=== PATIENT | male | born 1965 | race Hispanic/Latino ===

== ENCOUNTER → 2017-06-09 | Day surgery (SDC) | payer SELFPAY ==
[~2017-06-09] MED LIST: FENTANYL CITRATE/PF 100MCG/2 ML INJ ONE; LIDOCAINE HCL 2% LOCAL INJ 5 ML SDV VIAL INJ ONE; MIDAZOLAM HCL 2 MG/2 ML VIAL ONE; PROPOFOL IV EMULSION 10 MG/ML 50 ML VIAL ONE; PROPRANOLOL HCL40 MG PO
== END | disposition home or self-care (01) ==
LOC: OR 09:42
PROVIDERS: ATTEND Internal Medicine Gastroenterology
DX: K74.60 Unspecified cirrhosis of liver (principal); I85.10 Secondary esophageal varices without bleeding; K29.70 Gastritis, unspecified, without bleeding; K76.6 Portal hypertension; K31.89 Other diseases of stomach and duodenum; K21.9 Gastro-esophageal reflux disease without esophagitis; K44.9 Diaphragmatic hernia without obstruction or gangrene; K57.30 Diverticulosis of large intestine without perforation or abscess without bleeding; E66.9 Obesity, unspecified; B18.2 Chronic viral hepatitis C; D69.6 Thrombocytopenia, unspecified; R74.0 Nonspecific elevation of levels of transaminase and lactic acid dehydrogenase [LDH]; R00.1 Bradycardia, unspecified; F17.210 Nicotine dependence, cigarettes, uncomplicated; Z01.810 Encounter for preprocedural cardiovascular examination; Z68.34 Body mass index [BMI] 34.0-34.9, adult
CPT/HCPCS: 43239; 43244; 93005; J2001; J2250

== ENCOUNTER → 2017-08-06 | Outpatient (CLI) | payer SELFPAY ==
[~2017-08-06] MED LIST changes: -FENTANYL CITRATE/PF 100MCG/2 ML INJ ONE; -LIDOCAINE HCL 2% LOCAL INJ 5 ML SDV VIAL INJ ONE; -MIDAZOLAM HCL 2 MG/2 ML VIAL ONE; -PROPOFOL IV EMULSION 10 MG/ML 50 ML VIAL ONE; +PROTONIX40 MG/ML PO
[2017-08-06 11:15] LABS: BASOPHILS % 0.5 % (0.0-1.0); EOSINOPHILS # (AUTO) 0.1 (0.0-0.4); EOSINOPHILS % 2.3 % (0.0-6.0); HEMOGLOBIN 16.7 g/dL (14.0-18.0); LYMPHOCYTES # (AUTO) 2.1 (1.0-3.2); LYMPHOCYTES % 33.9 % (18.0-39.1); MEAN CORPUSCULAR HEMOGLOBIN 30.9 pg (28-32); MEAN CORPUSCULAR HGB CONC 34.1 g/dL (31-35); MEAN CORPUSCULAR VOLUME 90.6 fL (81-99); MONOCYTES # (AUTO) 0.7 (0.2-0.8); MONOCYTES % 12.3 % (4.4-11.3); NEUTROPHILS # (AUTO) 3.1 (2.1-6.9); NEUTROPHILS % 50.8 % (38.7-80.0); PLATELET COUNT 100 x10e3/uL (140-360); RED BLOOD COUNT 5.41 x10e6/uL (4.3-5.7); RED CELL DISTRIBUTION WIDTH 15.2 % (11.7-14.4)
[2017-08-06 11:30] LABS: INR 1.04; PROTHROMBIN TIME 14.1 seconds (11.9-14.5)
[2017-08-06 11:31] LABS: PARTIAL THROMBOPLASTIN TIME 45.3 seconds (23.8-35.5)
[2017-08-06 11:37] LABS: ALANINE AMINOTRANSFERASE 92 IU/L (0-55); ALBUMIN 3.7 g/dL (3.5-5.0); ALBUMIN/GLOBULIN RATIO 0.8 (0.8-2.0); ALKALINE PHOSPHATASE 94 IU/L (40-150); ANION GAP 11.3 mmol/L (8-16); BLOOD UREA NITROGEN 11 mg/dL (7-26); BUN/CREATININE RATIO 14 (6-25); CALCIUM 9.3 mg/dL (8.4-10.2); CARBON DIOXIDE 25 mmol/L (22-29); CHLORIDE 108 mmol/L (98-107); CREATININE, SERUM 0.79 mg/dL (0.72-1.25); EST GLOMERULAR FILTRATION RATE > 60 ML/MIN (60-); GLUCOSE 81 mg/dL (74-118); POTASSIUM 4.3 mmol/L (3.5-5.1); SODIUM 140 mmol/L (136-145)
== END ==
LOC: LAB 12:00 → OR 08-11 10:12 → EDSTATUS 08-11 11:00
PROVIDERS: ATTEND Internal Medicine Gastroenterology
DX: K74.60 Unspecified cirrhosis of liver (principal); D69.6 Thrombocytopenia, unspecified; I85.00 Esophageal varices without bleeding; K57.30 Diverticulosis of large intestine without perforation or abscess without bleeding; B18.2 Chronic viral hepatitis C; E66.9 Obesity, unspecified; Z71.3 Dietary counseling and surveillance; Z86.010 Personal history of colon polyps; Z53.8 Procedure and treatment not carried out for other reasons
CPT/HCPCS: 36415; 80053; 85025; 85610; 85730

== ENCOUNTER 2017-08-31 08:06 | Emergency (ER) | payer BC, OTHER, SELFPAY ==
[~2017-08-31] VITALS: Ht 180.3 cm; Wt 108.9 kg
[2017-08-31] MEDS ORDERED: CLINDAMYCIN PHOS 900MG/ D5W 50 50 ML IV STA (09:13)
[2017-08-31] MEDS ORDERED: SODIUM CHLORIDE 0.9% 1000ML 1,000 ML IV STA (09:13)
[2017-08-31 09:30] LABS: BASOPHILS % 0.2 % (0.0-1.0); EOSINOPHILS # (AUTO) 0.1 (0.0-0.4); HEMATOCRIT 43.5 % (38.2-49.6); HEMOGLOBIN 15.2 g/dL (14.0-18.0); LYMPHOCYTES # (AUTO) 1.4 (1.0-3.2); LYMPHOCYTES % 23.3 % (18.0-39.1); MEAN CORPUSCULAR HEMOGLOBIN 31.3 pg (28-32); MEAN CORPUSCULAR HGB CONC 34.9 g/dL (31-35); MEAN CORPUSCULAR VOLUME 89.7 fL (81-99); MONOCYTES # (AUTO) 0.7 (0.2-0.8); MONOCYTES % 11.1 % (4.4-11.3); NEUTROPHILS # (AUTO) 3.7 (2.1-6.9); NEUTROPHILS % 64.1 % (38.7-80.0); PLATELET COUNT 74 x10e3/uL (140-360); RED BLOOD COUNT 4.85 x10e6/uL (4.3-5.7); RED CELL DISTRIBUTION WIDTH 14.4 % (11.7-14.4)
[2017-08-31 09:44] LABS: INR 1.13; PROTHROMBIN TIME 13.6 seconds (11.9-14.5)
[2017-08-31 09:51] LABS: ALANINE AMINOTRANSFERASE 72 IU/L (0-55); ALBUMIN 3.4 g/dL (3.5-5.0); ALBUMIN/GLOBULIN RATIO 0.8 (0.8-2.0); ALKALINE PHOSPHATASE 77 IU/L (40-150); ANION GAP 12.7 mmol/L (8-16); BLOOD UREA NITROGEN 11 mg/dL (7-26); BUN/CREATININE RATIO 15 (6-25); CALCIUM 8.6 mg/dL (8.4-10.2); CARBON DIOXIDE 20 mmol/L (22-29); CHLORIDE 109 mmol/L (98-107); CREATININE, SERUM 0.75 mg/dL (0.72-1.25); EST GLOMERULAR FILTRATION RATE > 60 ML/MIN (60-); GLUCOSE 125 mg/dL (74-118); POTASSIUM 3.7 mmol/L (3.5-5.1); SODIUM 138 mmol/L (136-145)
[2017-08-31 11:22] VITALS: BP 104/64
== END 2017-08-31 11:34 | disposition home or self-care (01) ==
LOC: ER 08:06
DX: L03.115 Cellulitis of right lower limb (principal); L03.116 Cellulitis of left lower limb; I10 Essential (primary) hypertension; K74.60 Unspecified cirrhosis of liver; Z86.19 Personal history of other infectious and parasitic diseases; F17.200 Nicotine dependence, unspecified, uncomplicated
CPT/HCPCS: 36415; 80053; 85025; 85610; 85730; 99284; J7030

== ENCOUNTER → 2017-09-01 | Day surgery (SDC) | payer OTHER ==
[~2017-09-01] MED LIST changes: +FENTANYL CITRATE/PF 100MCG/2 ML INJ ONE; +LIDOCAINE HCL 2% LOCAL INJ 5 ML SDV VIAL INJ ONE; +MIDAZOLAM HCL 2 MG/2 ML VIAL ONE; +PROPOFOL IV EMULSION 10 MG/ML 20 ML VIAL ONE
--- OUTSIDE RECORDS SUMMARY | 2017-09-01 10:04 | XMS REPORT | Continuity of Care Document ---
Author Author [facility] Organization [facility] Address [address] [place] [address] Phone Unavailable Care Team Providers Care Director Of Curriculum And Instruction Name Role Phone CONNOR RYAN MD PCP Insurance Providers Guarantor Martha Dai Address [address] [place] [address] Payer [facility] Policy Number [id number] Subscriber's Name Martha Dai Relationship 18 Self / Same As Patient Group Name [facility] Advance Directives Directive Response Recorded Date/Time Does the patient have an advance directive? No 10/20/06 6:12pm If yes, is advance directive on file with [facility]? No 10/20/06 6:12pm If not on file with [facility] will patient provide a copy? No 03/20/12 7:19am Do you have a Directive to Physician? No 08/31/17 9:03am Do you have a Medical Power of Mineral Economist? No 08/31/17 9:03am Do you have an out of hospital Do Not Resuscitate Order? No 08/31/17 9:03am Do you have any special needs we should be aware of? No 08/31/17 9:03am Do you have a support person here with you today? No 08/31/17 9:03am Did patient receive Notice of Privacy Practices? Yes 08/31/17 9:03am Did patient receive patient rights and responsibilities? Yes 08/31/17 9:04am Problems No problem information available. Medications Current Home Medications Medication Dose Units Route Directions Days Qty Instructions Start Date Pantoprazole Sod (Protonix) 40 Mg/Ml Susp 40 Mg Oral Daily Propranolol Hcl 40 Mg Tablet 10 Mg Oral Twice A Day 60 Tab Social History Smoking Status Start Date Stop Date Current every day smoker Hospital Discharge Instructions No hospital discharge instruction information available. Plan of Care Discharge Date 08/31/17 11:34am Disposition HOME, SELF-CARE Condition at Discharge Stable Instructions/Education Provided Cellulitis Forms Provided Work/School Excuse Prescriptions See Medication Section Referrals CONNOR RYAN MD Order Date: Call for an appointment Address: [address] [place] [id number] Additional Instructions/Education Follow up with PCP in a couple of days Take medication as prescribed Return to ER if worsening of symptoms Functional Status No functional status information available. Allergies, Adverse Reactions, Alerts Allergen Type Severity Reaction Status Last Updated Promethazine Allergy Unknown TWITCHING Active 08/31/17 Immunizations No immunization information available. Vital Signs Acute Vital Signs Vital Response Date/Time Pulse Pulse Rate (adult) 60 bpm (60 - 90) 08/31/2017 11:22am Respiratory Rate 18 bpm (12 - 24) 08/31/2017 11:22am Blood Pressure 104/64 mm Hg 08/31/2017 11:22am Height 5 ft 11 in 08/31/2017 8:15am Weight 240 lb 08/31/2017 8:15am Body Mass Index 33.5 kg/m^2 08/31/2017 8:15am Results Laboratory Results Test Name Result Units Flags Reference Collection Date/Time Result Date/ Time Comments White Blood Count 5.83 x10e3/uL 4.8-10.8 08/31/2017 9:13am 08/31/2017 9 :42am Red Blood Count 4.85 x10e6/uL 4.3-5.7 08/31/2017 9:13am 08/31/2017 9: 42am Hemoglobin 15.2 g/dL 14.0-18.0 08/31/2017 9:08/31/2017 9:42am Hematocrit 43.5 % 38.2-49.6 08/31/2017 9:08/31/2017 9:42am Mean Corpuscular Volume 89.7 fL 81-99 08/31/2017 9:08/31/2017 9: 42am Mean Corpuscular Hemoglobin 31.3 pg 28-32 08/31/2017 9:08/31/2017 9:42am Mean Corpuscular Hemoglobin Concent 34.9 g/dL 31-35 08/31/2017 9:08/31/2017 9:42am Red Cell Distribution Width 14.4 % 11.7-14.4 08/31/2017 9:2017 9:42am Platelet Count 74 x10e3/uL L 140-360 08/31/2017 9:08/31/2017 9: 42am Neutrophils (%) (Auto) 64.1 % 38.7-80.0 08/31/2017 9:08/31/2017 9: 42am Lymphocytes (%) (Auto) 23.3 % 18.0-39.1 08/31/2017 9:08/31/2017 9: 42am Monocytes (%) (Auto) 11.1 % 4.4-11.3 08/31/2017 9:08/31/2017 9: 42am Eosinophils (%) (Auto) 1.0 % 0.0-6.0 08/31/2017 9:08/31/2017 9: 42am Basophils (%) (Auto) 0.2 % 0.0-1.0 08/31/2017 9:08/31/2017 9:42am IM GRANULOCYTES % 0.3 % 0.0-1.0 08/31/2017 9:08/31/2017 9:42am Neutrophils # (Auto) 3.7 2.1-6.9 08/31/2017 9:08/31/2017 9:42am Lymphocytes # (Auto) 1.4 1.0-3.2 08/31/2017 9:08/31/2017 9:42am Monocytes # (Auto) 0.7 0.2-0.8 08/31/2017 9:08/31/2017 9:42am Eosinophils # (Auto) 0.1 0.0-0.4 08/31/2017 9:08/31/2017 9:42am Basophils # (Auto) 0.0 0.0-0.1 08/31/2017 9:08/31/2017 9:42am Absolute Immature Granulocyte (auto 0.02 x10e3/uL 0-0.1 08/31/2017 9: 08/31/2017 9:42am Prothrombin Time 13.6 seconds 11.9-14.5 08/31/2017 9:08/31/2017 9: 45am Prothromb Time International Ratio 1.13 08/31/2017 9:2017 9:45am Oral Anticoagulant Therapy INR Values: 1. Low Intensity Therapy 1.5 - 2.0 2. Moderate Intensity Therapy 2.0 - 3.0 3. High Intensity Therapy(1) 2.5 - 3.5 4. High Intensity Therapy(2) 3.0 - 4.0 5. Panic Value INR > 5.0 Activated Partial Thromboplast Time 43.0 seconds H 23.8-35.5 08/31/2017 9 :08/31/2017 9:45am Sodium Level 138 mmol/L 136-145 08/31/2017 9:08/31/2017 9:52am Potassium Level 3.7 mmol/L 3.5-5.1 08/31/2017 9:08/31/2017 9:52am Chloride Level 109 mmol/L H 98-107 08/31/2017 9:08/31/2017 9:52am Carbon Dioxide Level 20 mmol/L L -08/31/2017 9:08/31/2017 9: 52am Anion Gap 12.7 mmol/L 8-16 08/31/2017 9:08/31/2017 9:52am Blood Urea Nitrogen 11 mg/dL 7-08/31/2017 9:08/31/2017 9:52am Creatinine 0.75 mg/dL 0.72-1.25 08/31/2017 9:08/31/2017 9:52am BUN/Creatinine Ratio 15 6-25 08/31/2017 9:08/31/2017 9:52am Estimat Glomerular Filtration Rate > 60 ML/MIN 60- 08/31/2017 9: 9:52am Ranges were taken from the National Kidney Disease Education Program and the National [employer] literature. Reference ranges: 60 or greater: Normal 16-59 (for 3 consecutive months): Chronic kidney disease 15 or less: Kidney failure Glucose Level 125 mg/dL H 74-118 08/31/2017 9:08/31/2017 9:52am Calcium Level 8.6 mg/dL 8.4-10.2 08/31/2017 9:08/31/2017 9:52am Total Bilirubin 1.5 mg/dL H 0.2-1.2 08/31/2017 9:08/31/2017 9:52am Aspartate Amino Transf (AST/SGOT) 63 IU/L H 5-34 08/31/2017 9:08/31 9:52am Alanine Aminotransferase (ALT/SGPT) 72 IU/L H 0-55 08/31/2017 9: 9:52am Total Protein 7.8 g/dL 6.5-8.1 08/31/2017 9:08/31/2017 9:52am Albumin 3.4 g/dL L 3.5-5.0 08/31/2017 9:08/31/2017 9:52am Globulin 4.4 g/dL H 2.3-3.5 08/31/2017 9:08/31/2017 9:52am Albumin/Globulin Ratio 0.8 0.8-2.0 08/31/2017 9:08/31/2017 9: 52am Alkaline Phosphatase 77 IU/L 40-150 08/31/2017 9:08/31/2017 9: 52am Procedures Procedure Status Date Provider(s) EGD BIOPSY SINGLE/MULTIPLE Completed 06/09/17 RAISA BOTELLO MD EGD VARICES LIGATION Completed 06/09/17 RAISA BOTELLO MD Encounters Encounter Location Arrival/Admit Date Discharge/Depart Date Attending Provider Departed Emergency Room [facility] 08/31/17 8:06am 11:34am RADHA ESTRELLA MD Registered Clinic [facility] 08/06/17 12:00pm RAISA BOTELLO MD Registered Surgical Day Care [facility] 06/09/17 9:42am RAISA BOTELLO MD
== END | disposition home or self-care (01) ==
LOC: OR 10:01
PROVIDERS: ATTEND Internal Medicine Gastroenterology
DX: K74.60 Unspecified cirrhosis of liver (principal); I85.10 Secondary esophageal varices without bleeding; K29.70 Gastritis, unspecified, without bleeding; K21.9 Gastro-esophageal reflux disease without esophagitis; K76.6 Portal hypertension; K31.89 Other diseases of stomach and duodenum; K44.9 Diaphragmatic hernia without obstruction or gangrene; K57.30 Diverticulosis of large intestine without perforation or abscess without bleeding; B18.2 Chronic viral hepatitis C; E66.9 Obesity, unspecified; I10 Essential (primary) hypertension; D69.6 Thrombocytopenia, unspecified; F17.200 Nicotine dependence, unspecified, uncomplicated; Z68.35 Body mass index [BMI] 35.0-35.9, adult
CPT/HCPCS: 43239; J2001; J2250